=== PATIENT | female | born 1985 | race Caucasian/White ===

== ENCOUNTER 2025-08-11 14:01 | Emergency (ER) | payer BC ==
[~2025-08-11] VITALS: Ht 157.5 cm; Wt 68.0 kg
[2025-08-11 14:05] VITALS: BP 113/88
[2025-08-11] MEDS ORDERED: PANT20TA2 PO (14:44)
[2025-08-11] MEDS ORDERED: SUCR1ORA15 PO (14:44)
[2025-08-11 14:53] VITALS: BP 120/80; O2SAT 99
== END 2025-08-11 14:53 | disposition home or self-care (01) ==
LOC: ER 14:10
DX: K21.9 Gastro-esophageal reflux disease without esophagitis (principal); R13.10 Dysphagia, unspecified; J45.909 Unspecified asthma, uncomplicated; G89.4 Chronic pain syndrome; Z79.899 Other long term (current) drug therapy
CPT/HCPCS: A4606; A4663